=== PATIENT | female | born 1985 | race American Indian/Alaskan Native ===

== ENCOUNTER 2018-07-23 09:18 | Emergency (ER) | payer SELFPAY ==
[2018-07-23 09:29] VITALS: TEMP 98.7; BMI 30.4
[2018-07-23] MEDS ORDERED: Lidocaine 5% Patch TD ONE (11:00)
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
[2018-07-23 11:54] VITALS: BP 111/68; PULSE 78; RESP 16
[2018-07-23 11:55] VITALS: O2SAT 99
== END 2018-07-23 11:53 | disposition home or self-care (01) ==
LOC: C.ER 09:18
DX: S33.5XXA Sprain of ligaments of lumbar spine, initial encounter (principal); V49.49XA Driver injured in collision with other motor vehicles in traffic accident, initial encounter